=== PATIENT | female | born 1960 | race Caucasian/White ===

== ENCOUNTER → 2021-01-10 | Outpatient (CLI) | payer BC ==
[2021-01-10 19:16] LABS: Basophils # (A) 0.04 X 10*3/uL (0.00-0.10); Basophils % (A) 0.7 %; Eosinophils # (A) 0.07 X 10*3/uL (0.04-0.35); Eosinophils % (A) 1.3 %; HGB 14.5 g/dL (12.0-15.0); Lymphocytes # (A) 1.78 X 10*3/uL (0.90-5.00); Lymphocytes % (A) 32.3 %; MCH 26.7 pg (27.0-32.0); MCHC 30.2 g/dL (32.0-37.0); MCV 88.4 fL (80.0-97.0); Monocytes # (A) 0.45 X 10*3/uL (0.20-1.00); Monocytes % (A) 8.2 %; Neutrophils # (A) 3.15 X 10*3/uL (1.80-7.70); Neutrophils % (A) 57.1 %; Platelet Count 233 X 10*3/uL (140-440); RBC 5.43 X 10*6/uL (4.10-5.20); RDW 13.3 % (11.5-14.5); WBC 5.51 X 10*3/uL (4.50-10.00)
[2021-01-11 02:39] LABS: African American GFR (CKD) 81.7 (60.0-200.0); Albumin 4.2 g/dL (3.80-4.90); Albumin/Globulin Ratio 1.91 (1.60-3.17); Anion Gap 14.2 mmol/L (4.00-12.00); BUN/Creat Ratio 14.44 Ratio (12.00-20.00); Calcium 9.4 mg/dL (8.7-10.3); Carbon Dioxide 19.8 mmol/L (21.6-31.8); Chol/HDL Ratio 3.32; Globulin 2.2 g/dL (1.6-3.3); LDL Cholesterol,Calculated 93.4 mg/dL (0.0-131.0); Non-African American GFR(CKD) 70.5 (60.0-200.0); Potassium 3.9 mmol/L (3.5-5.5); Total Bilirubin 0.4 mg/dL (0.2-1.2); Total Protein 6.4 g/dL (6.2-8.2); VLDL Calculation 29.6 mg/dL (5.00-40.00)
[2021-01-11 02:47] LABS: T4, Free (Free Thyroxine) 1.2 ng/dL (0.80-1.80)
== END | disposition home or self-care (01) ==
LOC: LABWHC1 14:23
PROVIDERS: ATTEND Nurse Practitioner
DX: Z00.00 Encounter for general adult medical examination without abnormal findings (principal); I10 Essential (primary) hypertension
CPT/HCPCS: 36415; 80053; 80061; 82088; 84244; 84439; 84443; 85025

== ENCOUNTER → 2021-02-06 | Outpatient (CLI) | payer BC ==
--- NOTE | 2021-02-07 07:57 | XR ---
EXAMINATION TYPE: XR knee 4V RT DATE OF EXAM: 02/06/2021 COMPARISON: None HISTORY: Derangement of knee pain TECHNIQUE: 4 view right knee FINDINGS: There is narrowing of the medial and lateral compartment joint spaces. Medial femoral condy lar and tibial plateau spurring is present. Lateral femoral condylar spurring is present. Soft tissue swelling is over the medial right knee. No acute fractures are evident. Posterior-inferior patellar spurring is present. No joint effusion is evident. Follow up exams can be performed 7-10 days from acute trauma for continued pain. IMPRESSION: 1. No acute osseous abnormality. 2. Moderate degenerative changes of the right knee.
--- NOTE | 2021-02-07 07:59 | XR ---
EXAMINATION TYPE: XR tibia fibula RT DATE OF EXAM: 02/06/2021 COMPARISON: None HISTORY: Pain TECHNIQUE: 2 view right tibia and fibula FINDINGS: There appear to be chronic degenerative changes through the right knee. Old trauma could be considered. No acute fractures are evident. The ankle mortise is intact. Plantar calcaneal heel spur is noted. Follow-up studies can be performed 7-10 days from acute trauma for continued pain. IMPRESSION: 1. No acute osseous abnormality right tibia and fibula
--- NOTE | 2021-02-07 08:01 | XR ---
EXAMINATION TYPE: XR Hip Bilateral and AP pelvis DATE OF EXAM: 02/06/2021 COMPARISON: None HISTORY: Abnormal gait, pain TECHNIQUE: AP pelvis and two-view bilateral hips FINDINGS: Femoral heads articulate with the acetabulum. Joint spaces may have minimal diffuse narrowi ng. Symphysis pubis sacroiliac joints are normal. Normal bowel gas is present. No acute fractures or dislocations are evident. IMPRESSION: 1. Minimal degenerative change bilateral hips
--- NOTE | 2021-02-07 08:17 | XR ---
EXAMINATION TYPE: XR femur RT DATE OF EXAM: 02/06/2021 COMPARISON: None HISTORY: Pain, abnormal gait TECHNIQUE: 2 view right femur FINDINGS: Femoral head articulates with the acetabulum. No acute fracture or dislocation is evident. Degenerative changes are within the. No suspicious joint effusion. IMPRESSION: 1. No acute osseous abnormality right femur
== END | disposition home or self-care (01) ==
LOC: RADXRMAIN 15:36
PROVIDERS: ATTEND Nurse Practitioner
DX: M17.11 Unilateral primary osteoarthritis, right knee (principal); M23.91 Unspecified internal derangement of right knee
CPT/HCPCS: 73521

== ENCOUNTER 2023-10-14 10:18 | Emergency (ER) | payer BC ==
[2023-10-14 10:23] VITALS: TEMP 97.3
--- NOTE | 2023-10-14 10:29 | ED ---
Back Pain HPI - General Chief Complaint: Back Pain/Injury Stated Complaint: shoulder pain Time Seen by Provider: 10/14/23 10:29 Source: patient, RN notes reviewed Limitations: no limitations - History of Present Illness Initial Comments: This is a 63-year-old female presents emergency department chief complaint of left upper back and shoulder pain started yesterday morning after she woke up. She states that the area feels better with pressure. Denies parasthesias, loss of motor function, radiation of pain, chest pain, chest pressure, palpitations, dizziness, lightheadedness. Endorses nausea this morning. Denies history of NH, CVA, is not on blood thinners. Denies previous injuries to the back or shoulders or previous history of MVA. - Related Data Previous Rx's Medication Instructions Recorded Ketorolac [Toradol] 10 mg PO Q8HR #15 tab 10/14/23 lisinopriL [Zestril] 20 mg PO DAILY #5 tab 10/14/23 Allergies Allergy/AdvReac Type Severity Reaction Status Date / Time Sulfa (Sulfonamide Allergy Rash/Hives Verified 10/14/23 11:19 Antibiotics) & Passed out Review of Systems ROS Statement: Those systems with pertinent positive or pertinent negative responses have been documented in the HPI. ROS Other: All systems not noted in ROS Statement are negative. Past Medical History Past Medical History: No Reported History History of Any Multi-Drug Resistant Organisms: None Reported Additional Past Surgical History / Comment(s): left knee Past Psychological History: No Psychological Hx Reported Smoking Status: Never smoker Past Alcohol Use History: None Reported Past Drug Use History: None Reported General Exam Limitations: no limitations General appearance: alert, in no apparent distress Head exam: Present: atraumatic, normocephalic, normal inspection Eye exam: Present: normal appearance, PERRL, EOMI. Absent: scleral icterus, conjunctival injection, periorbital swelling ENT exam: Present: normal exam, mucous membranes moist Neck exam: Present: normal inspection, tenderness (posterior left shoulder/neck pain with ROM, palpation mildly allevaites pain). Absent: meningismus, lymphadenopathy Respiratory exam: Present: normal lung sounds bilaterally. Absent: respiratory distress, wheezes, rales, rhonchi, stridor Cardiovascular Exam: Present: regular rate, normal rhythm, normal heart sounds. Absent: systolic murmur, diastolic murmur, rubs, gallop, clicks GI/Abdominal exam: Present: soft, normal bowel sounds. Absent: distended, tenderness, guarding, rebound, rigid Extremities exam: Present: normal inspection, full ROM, normal capillary refill. Absent: tenderness, pedal edema, joint swelling, calf tenderness Back exam: Present: full ROM, tenderness (proximal left shoulder/cervical spine with palpation). Absent: CVA tenderness (R), CVA tenderness (L), muscle spasm Neurological exam: Present: alert, oriented X3, CN II-XII intact Psychiatric exam: Present: normal affect, normal mood Skin exam: Present: warm, dry, intact, normal color. Absent: rash Course Vital Signs 10/14/23 10/14/23 10/14/23 10:19 10:51 11:30 Temperature 97.3 F L Pulse Rate 86 88 76 Respiratory 20 18 22 Rate Blood Pressure 215/115 198/110 198/110 O2 Sat by Pulse 95 98 100 Oximetry 10/14/23 10/14/23 10/14/23 12:00 12:30 13:00 Temperature Pulse Rate 68 73 64 Respiratory 13 19 13 Rate Blood Pressure 177/92 151/98 172/92 O2 Sat by Pulse 100 95 72 L Oximetry 10/14/23 13:28 Temperature Pulse Rate 70 Respiratory 20 Rate Blood Pressure 160/84 O2 Sat by Pulse 100 Oximetry Medical Decision Making - Medical Decision Making Was pt. sent in by a medical professional or institution ([facility]autista, SOFTWARE INSTALLER, urgent care, hospital, or shelter...) When possible be specific @ -No Did you speak to anyone other than the patient for history (EMS, parent, family, police, friend...)? What history was obtained from this source @ -No Did you review nursing and triage notes (agree or disagree)? Why? @ -I reviewed and agree with nursing and triage notes Were old charts reviewed (outside hosp., previous admission, EMS record, old EKG, old radiological studies, urgent care reports/EKG's, shelter records)? Report findings @ -No old charts were reviewed Differential Diagnosis (chest pain, altered mental status, abdominal pain women, abdominal pain men, vaginal bleeding, weakness, fever, dyspnea, syncope, headache, dizziness, GI bleed, back pain, seizure, CVA, palpatations, mental health, musculoskeletal)? @Differential Musculoskeletal Muscular strain, contusion, ligament sprain, fracture, arthritis, septic arthritis, bursitis, cellulitis, muscle spasm, nerve compression, DVT, arterial occlusion, herpes zoster, electrolyte abnormality, tumor.... This is not meant to be in all inclusive list EKG interpreted by me (3pts min.). @ -completed at 1039, sinus rhythm, ventricular rate 77, PA interval 135, QTc 399. No acute signs of ischemia. X-rays interpreted by me (1pt min.). @ -Cervical and thoracic spine xr no fracture or dislocation noted. chest xray no acute evidence for pulmonary disease. CT interpreted by me (1pt min.). @ -None done U/S interpreted by me (1pt. min.). @ -None done What testing was considered but not performed or refused? (CT, X-rays, U/S, labs)? Why? @ -None What meds were considered but not given or refused? Why? @ -None Did you discuss the management of the patient with other professionals (professionals i.e. , PA, SOFTWARE INSTALLER, lab, RT, psych nurse, social welfare clerk, nut tightener, teacher, police officer crime prevention, casework manager)? Give summary @ -I spoke with Dr. Jiang in regard to admission for the patient. Recommend patient be admitted for observation for evaluation of hypertension. However on discussion patient is declining admission and states that she will follow-up with her primary care provider in the next 2 days for reevaluation. Was smoking cessation discussed for >3mins.? @ -No Was critical care preformed (if so, how long)? @ -No Were there social determinants of health that impacted care today? How? (Homelessness, low income, unemployed, alcoholism, drug addiction, transportation, low edu. Level, literacy, decrease access to med. care, half-way, rehab)? @ -No Was there de-escalation of care discussed even if they declined (Discuss DNR or withdrawal of care, Hospice)? DNR status @ -No What co-morbidities impacted this encounter? (DM, HTN, Smoking, COPD, CAD, Cancer, CVA, ARF, Chemo, Hep., AIDS, mental health diagnosis, sleep apnea, morbid obesity)? @ -None Was patient admitted / discharged? Hospital course, mention meds given and route, prescriptions, significant lab abnormalities, going to OR and other pertinent info. @ -63-year-old female patient with. Initial evaluation patient was found to be hypertensive with a systolic blood pressure recheck of blood pressure was elevated at 198/110. Patient is denying symptoms of chest pain, chest pressure, dizziness, lightheadedness, dyspnea nausea. Due to patient being in hypertensive urgency anxiety will be started and labs will be obtained. Additionally patient will undergo imaging of the chest, neck. She will be provided with Nitropaste and IV push of Lopressor for blood pressure control. Patient is in agreement with this plan. CBC reveals mild elevated white blood cells of 5.3 and hematocrit of 49.4. CMP unremarkable, troponin nonelevated, coagulation profile within normal limits. On reevaluation patient is still found to be hypertensive up to 198/110 at 12:00. Discussion with patient at bedside that laboratory results have been unremarkable and that pain is likely musculoskeletal in nature. With patient's findings of elevated blood pressure discussion with recommended observation admission for further evaluation. Patient declines at this time. She is provided with another dose of IV Lopressor. Reevaluation, patient blood pressure is 160/84. She states the pain medication has alleviated some of the pain that she has been experiencing. recoomend patient follows up with her primary care provider in the next 1 to 2 days for further evaluation. She has been provided with an outpatient prescription for lisinopril Toradol. Take lisinopril as directed and Toradol for pain relief. All questions answered at bedside and strict return parameters discussed with patient which she verbalizes understanding. Discussed with my attending Dr. Jiang Undiagnosed new problem with uncertain prognosis? @ -No Drug Therapy requiring intensive monitoring for toxicity (Heparin, Nitro, Insulin, Cardizem)? @ -No Were any procedures done? @ -No Diagnosis/symptom? @ -Hypertension, left back/shoulder pain Acute, or Chronic, or Acute on Chronic? @ -acute Uncomplicated (without systemic symptoms) or Complicated (systemic symptoms)? @ -uncomplicated Side effects of treatment? @ -No Exacerbation, Progression, or Severe Exacerbation? @ -No Poses a threat to life or bodily function? How? (Chest pain, USA, NH, pneumonia, PE, COPD, DKA, ARF, appy, cholecystitis, CVA, Diverticulitis, Homicidal, Suicidal, threat to staff... and all critical care pts) @ -No - Lab Data Result diagrams: 10/14/23 10:38 10/14/23 10:38 Lab Results 10/14/23 10/14/23 10/14/23 Range/Units 10:38 10:38 10:38 WBC 6.7 (3.8-10.6) k/uL RBC 5.83 H (3.80-5.40) m/uL Hgb 15.7 (11.4-16.0) gm/dL Hct 49.4 H (34.0-46.0) % MCV 84.6 (80.0-100.0) fL MCH 26.9 (25.0-35.0) pg MCHC 31.8 (31.0-37.0) g/dL RDW 13.1 (11.5-15.5) % Plt Count 225 (150-450) k/uL MPV 9.4 Neutrophils % 65 % Lymphocytes % 26 % Monocytes % 5 % Eosinophils % 3 % Basophils % 1 % Neutrophils # 4.4 (1.3-7.7) k/uL Lymphocytes # 1.7 (1.0-4.8) k/uL Monocytes # 0.3 (0-1.0) k/uL Eosinophils # 0.2 (0-0.7) k/uL Basophils # 0.1 (0-0.2) k/uL PT 10.1 (10.0-12.5) sec INR 0.9 (<1.2) APTT 26.7 (22.0-30.0) sec Sodium 138 (137-145) mmol/L Potassium 4.6 (3.5-5.1) mmol/L Chloride 107 (98-107) mmol/L Carbon Dioxide 27 (22-30) mmol/L Anion Gap 4 mmol/L BUN 12 (7-17) mg/dL Creatinine 0.70 (0.52-1.04) mg/dL Est GFR (CKD-EPI)AfAm >90 (>60 ml/min/1.73 sqM) Est GFR (CKD-EPI)NonAf >90 (>60 ml/min/1.73 sqM) Glucose 98 (74-99) mg/dL Calcium 9.2 (8.4-10.2) mg/dL Magnesium 2.0 (1.6-2.3) mg/dL Total Bilirubin 1.0 (0.2-1.3) mg/dL AST 32 (14-36) U/L ALT 24 (4-34) U/L Alkaline Phosphatase 112 (38-126) U/L Troponin I (0.000-0.034) ng/mL Total Protein 7.0 (6.3-8.2) g/dL Albumin 4.2 (3.5-5.0) g/dL 10/14/23 Range/Units 10:38 WBC (3.8-10.6) k/uL RBC (3.80-5.40) m/uL Hgb (11.4-16.0) gm/dL Hct (34.0-46.0) % MCV (80.0-100.0) fL MCH (25.0-35.0) pg MCHC (31.0-37.0) g/dL RDW (11.5-15.5) % Plt Count (150-450) k/uL MPV Neutrophils % % Lymphocytes % % Monocytes % % Eosinophils % % Basophils % % Neutrophils # (1.3-7.7) k/uL Lymphocytes # (1.0-4.8) k/uL Monocytes # (0-1.0) k/uL Eosinophils # (0-0.7) k/uL Basophils # (0-0.2) k/uL PT (10.0-12.5) sec INR (<1.2) APTT (22.0-30.0) sec Sodium (137-145) mmol/L Potassium (3.5-5.1) mmol/L Chloride (98-107) mmol/L Carbon Dioxide (22-30) mmol/L Anion Gap mmol/L BUN (7-17) mg/dL Creatinine (0.52-1.04) mg/dL Est GFR (CKD-EPI)AfAm (>60 ml/min/1.73 sqM) Est GFR (CKD-EPI)NonAf (>60 ml/min/1.73 sqM) Glucose (74-99) mg/dL Calcium (8.4-10.2) mg/dL Magnesium (1.6-2.3) mg/dL Total Bilirubin (0.2-1.3) mg/dL AST (14-36) U/L ALT (4-34) U/L Alkaline Phosphatase (38-126) U/L Troponin I <0.012 (0.000-0.034) ng/mL Total Protein (6.3-8.2) g/dL Albumin (3.5-5.0) g/dL Disposition Clinical Impression: Left shoulder pain, Back pain, Hypertension Disposition: HOME SELF-CARE Condition: Good Instructions (If sedation given, give patient instructions): Hypertension (ED) Additional Instructions: Return to emergency department if your symptoms worsen or do not improve. Follow-up with your primary care provider in the next 1 to 3 days for further e valuation of hypertension. Prescriptions: lisinopriL [Zestril] 20 mg PO DAILY #5 tab Is patient prescribed a controlled substance at d/c from ED?: No Referrals: Ruslan Rivera MD [Primary Care Provider] - 1-2 days Time of Disposition: 13:19
[2023-10-14 11:12] LABS: Basophils # (A) 0.1 k/uL (0-0.2); Basophils % (A) 1 %; Eosinophils # (A) 0.2 k/uL (0-0.7); Eosinophils % (A) 3 %; HCT 49.4 % (34.0-46.0); HGB 15.7 gm/dL (11.4-16.0); Lymphocytes # (A) 1.7 k/uL (1.0-4.8); Lymphocytes % (A) 26 %; MCH 26.9 pg (25.0-35.0); MCHC 31.8 g/dL (31.0-37.0); MCV 84.6 fL (80.0-100.0); Mean Platelet Volume 9.4; Monocytes # (A) 0.3 k/uL (0-1.0); Monocytes % (A) 5 %; Neutrophils # (A) 4.4 k/uL (1.3-7.7); Neutrophils % (A) 65 %; Platelet Count 225 k/uL (150-450); RBC 5.83 m/uL (3.80-5.40); RDW 13.1 % (11.5-15.5); WBC 6.7 k/uL (3.8-10.6)
--- NOTE | 2023-10-14 11:22 | XR ---
EXAMINATION TYPE: XR thoracic spine 2V DATE OF EXAM: 10/14/2023 CLINICAL HISTORY: pain TECHNIQUE: Frontal, lateral, and swimmer's view of thoracic spine are obtained. COMPARISON: None. FINDINGS: Thoracic spine show satisfactory alignment without evidence of acute fracture or dislocatio n. Vertebral body heights are preserved. Disc spaces are well preserved. Visualized ribs are unrem arkable. IMPRESSION: No acute fracture or dislocation is seen in the thoracic spine. ICD 10 NO FRACTURE, INIT IAL EVALUATION
--- NOTE | 2023-10-14 11:23 | XR ---
EXAMINATION TYPE: XR cervical spine comp DATE OF EXAM: 10/14/2023 CLINICAL HISTORY: pain COMPARISON: NONE TECHNIQUE: Frontal, lateral, oblique, swimmers, and open mouth view of the cervical spine are obtaine d. FINDINGS: The cervical spine is visualized in its entirety from C1 thru the top of T1 level. It is s atisfactory in alignment without evidence of acute fracture or dislocation. The pre-vertebral soft t issue appears within normal limits. Disc spaces are well preserved. The C1-C2 articulation is unremar kable on the open mouth view. The oblique images are within normal limits. IMPRESSION: No acute fracture or dislocation is seen in the cervical spine.ICD 10 NO FRACTURE, INITI AL EVALUATION
[2023-10-14 11:25] LABS: African American GFR (CKD) >90 (>60 ml/min/1.73 sqM); Anion Gap 4 mmol/L; Blood Urea Nitrogen 12 mg/dL (7-17); Carbon Dioxide 27 mmol/L (22-30); Chloride 107 mmol/L (98-107); Glucose 98 mg/dL (74-99); Potassium 4.6 mmol/L (3.5-5.1); Sodium 138 mmol/L (137-145)
--- NOTE | 2023-10-14 11:25 | XR ---
EXAMINATION TYPE: XR chest 2V DATE OF EXAM: 10/14/2023 COMPARISON: NONE HISTORY: Shortness of breath TECHNIQUE: Frontal and lateral views of the chest are obtained. FINDINGS: Scattered senescent parenchymal changes noted. No evidence for infiltrate. No evidence for atelectasis. Heart size is stable. Mediastinal structures are stable and grossly unremarkable. No evidence for hilar prominence. Degenerative changes dorsal spine. IMPRESSION: 1. No evidence for acute pulmonary disease.
[2023-10-14 11:26] LABS: ALT 24 U/L (4-34); AST 32 U/L (14-36); Albumin 4.2 g/dL (3.5-5.0); Alkaline Phosphatase 112 U/L (38-126); Calcium 9.2 mg/dL (8.4-10.2); Non-African American GFR(CKD) >90 (>60 ml/min/1.73 sqM)
[2023-10-14] MEDS: NITROGLYCERIN OINT 1 INCH/GM PACKET TOPICAL STA (11:34)
[2023-10-14] MEDS: METOPROLOL TARTRATE 5 MG/5 ML VIAL IVP STA ×2 (11:34→12:43)
[2023-10-14 12:09] LABS: INR 0.9 (<1.2); Prothrombin Time 10.1 sec (10.0-12.5)
[2023-10-14 12:10] LABS: Partial Thromboplastin Time 26.7 sec (22.0-30.0)
[2023-10-14] MEDS: HYDROmorphone 0.5 MG/0.5 ML SYRINGE IVP STA (12:43)
[2023-10-14 13:43] VITALS: BP 149/87; PULSE 67; RESP 18
[2023-10-14] MEDS: LIDOCAINE 4% PATCH TOPICAL ONE (13:45)
== END 2023-10-14 13:43 | disposition home or self-care (01) ==
LOC: EC 10:18
DX: M54.9 Dorsalgia, unspecified (principal); M25.512 Pain in left shoulder; I10 Essential (primary) hypertension; Z88.2 Allergy status to sulfonamides
CPT/HCPCS: 99284; 96375; 96376; 36415; 93005; 80053; 83735; 84484; 85025; 85610; 85730; 72070; 72050; 71046; 96374; J1170

== ENCOUNTER → 2023-11-07 | Outpatient (CLI) | payer BC ==
--- NOTE | 2023-11-07 15:31 | BD ---
EXAMINATION TYPE: Axial Bone Density DATE OF EXAM: 11/07/2023 CLINICAL HISTORY: 63 years old Female. ICD-10 CODE: Z78.0 ASYMP [place] STATE Height: 5 ft Weight: 250 FRAX RISK QUESTIONS: Alcohol (3 or more units per day): no Family History (Parent hip fracture): no Glucocorticoids (More than 3mos): no (Ex: prednisone, prednisolone, methylprednisolone, dexamethasone, and hydrocortisone). History of Fracture in Adulthood: yes Secondary Osteoporosis: 1. Type 1 Diabetes: no 2. Hyperthyroidism: no 3. Menopause before 45: no 4. Malnutrition: no 5. Chronic liver disease: no Rheumatoid Arthritis: no Current Tobacco Use: no RISK FACTORS HISTORY OF: Surgery to Spine/Hip(right/left)/Wrist (right/left): no MEDICATIONS: Thyroid Medications: none Osteoporosis Medications: none EXAM MEASUREMENTS: Bone mineral densitometry was performed using the [facility]. Bone mineral density as measured about the Lumbar spine is: ----- L1-L4(G/cm2): 0.931 T Score Values are as follows: ----- L1: -2.3 ----- L2: -2.5 ----- L3: -2.7 ----- L4: -1.3 ----- L1-L4: -2.1 Z Score Values are as follows: ----- L1: -2.1 ----- L2: -2.4 ----- L3: -2.6 ----- L4: -1.2 ----- L1-L4: -1.9 baseline Bone mineral density about the R hip (g/cm2): 0.715 Bone mineral density about the L hip (g/cm2): 0.712 T Score values are as follows: -----R Neck: -2.3 -----L Neck: -2.3 -----R Total: -1.8 -----L Total: -1.4 Z Score values are as follows: -----R Neck: -1.8 -----L Neck: -1.8 -----R Total: -1.6 -----L Total: -1.2 baseline FRAX%s: The graph provided illustrates a 15.8 % chance for a major osteoporotic fx and a 2.5 % chance for the hips probability for fx in 10 years time. IMPRESSION: Osteopenia (T Score between -2.5 and -1). There is slightly increased risk of fracture and the patient may be considered for treatment. Re-Screen 2-5 years. NOTE: T-SCORE=SD OF THE YOUNG ADULT MEAN.
--- NOTE | 2023-11-08 18:57 | MM ---
Reason for Exam: Screening (asymptomatic). Last mammogram was performed 9 year(s) and 3 month(s) ago. Patient History: Menarche at age 14. First Full-Term at age 25. Postmenopausal. Patient has history of breast feeding. Patient used Hormonal Contraceptives for 3 years. Risk Values: Katie 5 year model risk: 1.3%. NCI Lifetime model risk: 6.4%. Prior Study Comparison: 03/27/2010 Bilateral Screening Mammogram, [facility]. 03/29/2011 Bilateral Screening Mammogram, [facility]. 08/09/2014 Bilateral Screening Mammogram, [facility]. Tissue Density: There are scattered areas of fibroglandular density. Findings: Analyzed By CAD. Unchanged focal asymmetry medial left breast. There is no suspicious group of microcalcifications or new suspicious mass in either breast. Overall Assessment: Benign, BI-RAD 2 Management: Screening Mammogram of both breasts in 1 year. . Patient should continue monthly self-breast exams. A clinical breast exam by your physician is recommended on an annual basis. This exam should not preclude additional follow-up of suspicious palpable abnormalities. Note on Katie scores and lifetime risk: 1. A Katie score greater than 3% is considered moderate risk. If this is the case, consider specialist referral to assess eligibility for a risk reducing agent. 2. If overall lifetime risk for the development of breast cancer is 20% or higher, the patient may qualify for future screening with alternating mammogram and breast MRI. Electronically signed and approved by: Denzel Rosales M.D. Radiologist
== END | disposition home or self-care (01) ==
LOC: RADMAMWWP 06:59
PROVIDERS: ATTEND Family Medicine
DX: Z12.31 Encounter for screening mammogram for malignant neoplasm of breast (principal); M85.89 Other specified disorders of bone density and structure, multiple sites; Z78.0 Asymptomatic menopausal state
CPT/HCPCS: 77067; 77080